=== PATIENT | male | born 1955 | race Caucasian/White ===

== ENCOUNTER 2017-07-31 08:35 | Outpatient (CLI) | payer OTHER ==
[~2017-07-31] VITALS: Ht 193 cm; Wt 97.7 kg
--- NOTE | ~2017-07-31 | HEMODYNAMI ---
PATIENT:MARK BACA MEDICAL RECORD: [id number] : 53 LOCATION:[facility] ADMISSION DATE: 07/31/17 Generatedon:07/31/201713:13 Patient name: MARK BACA Patient #: [id number] SSN: : Date of study: 07/31/2017 Page: Of Hemodynamic Procedure Report Patient Data Patient Demographics Procedure consent was obtained First Name: MARK Gender: Male Last Name: KEVEN : 1955 [facility] Initial: RY Age: 61 year(s) Patient #: [id number] Race: Unknown Additional ID: [id number] Contact details Address: [address] [place] [address] State: [place] City: [place] Zip code: [address] Past Medical History Allergies Allergen Reaction Date Comments Reported Penicillins 07/31/2017 Admission Admission Data Admission Date: 07/31/2017 Admission Time: 8:35 Height (in.): 6.4 BSA: 0.38 (m2) Height (cm.): 16.26 BMI: 3776.25 (kg/m2) Weight (lbs.): 220 Weight (kg.): 99.79 Lab Results Lab Result Date: 07/31/2017 Lab Result Time: 0:00 Biochemistry Name Units Result Min Max BUN mg/dl 18 --(---*)-- 7 18 Creatinine mg/dl 1 --(--*-)-- 0.6 1.3 CBC Name Units Result Min Max Hemoglobin g/dl 16.6 --(---*)-- 13.5 17.5 Procedure Procedure Types Cath Procedure Diagnostic Procedure [facility] w/Coronaries Sedation Charges Moderate Sedation up to 15 minutes PCI Procedure Coronary Stent Coronary Stent Initial Coronary Stent Additional Procedure Description Procedure Date Procedure Date: 07/31/2017 Procedure Start Time: 12:40 Procedure End Time: 13:08 Procedure Staff Name Function Eulogio Garduno MD Performing Physician Gaby Ariza RT Monitor Bryan Jensen RT Nish Day RN Nurse Procedure Data Cath Procedure Fluoroscopy Diagnostic fluoroscopy Total fluoroscopy Time: 8.1 time: 8.1 min min Diagnostic fluoroscopy Total fluoroscopy dose: dose: 1405 mGy 1405 mGy Contrast Material Contrast Material Type Amount (ml) Isovue 300 162 Entry Location Entry Primary Successful Side Size Upsize Upsize Entry Closure Succes sful Closure Location (Fr) 1 (Fr) 2 (Fr) Remarks Device Remarks Femoral Right 5 Fr 6 Fr Exoseal artery Short Estimated blood loss: 10 ml Diagnostic catheters Device Type Used For End Catheter Placement MULTIPACK Pigtail 5 Fr Procedure catheter MULTIPACK JL 4.0 5Fr Procedure catheter MULTIPACK 3DRC 5Fr Procedure catheter Procedure Complications No complications Procedure Medications Medication Administration Route Dosage Oxygen etCO2 Nasal cannula 2 l/min Heparin Flush Bag added to field 2 bags (1000units/500ml NS) 0.9% NaCl I.V. 100 ml/hr Versed I.V. 1 mg Fentanyl I.V. 50 mcg Heparin Bolus I.V. 4000 units Versed I.V. 1 mg Fentanyl I.V. 50 mcg Fentanyl I.V. 50 mcg Hemodynamics Rest BSA: 0.38 (m2) HGB: 16.6 (g/dl) O2 Consumption: Estimated: 42.39 (ml/min) O2 Con sumption indexed: Estimated:111.55 (ml/min/m) Heart Rate: 55 (bpm) Snapshots Pre Cath Intra NCS Post Cath Vital Signs Time Heart Resp SPO2 etCO2 NIBP (mmHg) Rhythm Pain Sedation Rate (ipm) (%) (mmHg) Status Level (bpm) 12:27:40 57 17 98 34.3 145/77(100) NSR 0 (11) 10(A) , No pain 12:32:22 60 16 99 35.1 139/81(101) NSR 0 (11) 10(A) , No pain 12:37:07 56 15 96 0.7 127/66(88) NSR 0 (11) 10(A) , No pain 12:42:18 56 13 96 38.8 131/68(100) NSR 0 (11) 9(A) , No pain 12:47:01 57 13 96 38.1 126/69(97) NSR 0 (11) 9(A) , No pain 12:51:41 63 15 96 38.1 128/71(95) NSR 0 (11) 9(A) , No pain 12:56:24 62 16 96 41.9 134/68(100) NSR 0 (11) 10(A) , No pain 13:01:07 60 14 94 36.6 125/59(85) NSR 0 (11) 9(A) , No pain 13:05:49 60 15 96 42.6 136/67(111) NSR 0 (11) 10(A) , No pain Medications Time Medication Route Dose Verified Delivered Reason Notes Effectiveness by by 12:26:16 Oxygen etCO2 2 Eulogio Buffie Per physician Nasal l/min Laureen Day RN cannula 12:26:25 Heparin Flush added 2 Eulogio Buffie used for Bag to bags Laureen Day RN procedure (1000units/500ml field NS) 12:26:35 0.9% NaCl I.V. 100 Eulogio Buffie Per physician ml/hr Laureen Day RN 12:37:17 Versed I.V. 1 mg Eulogio Buffie for sedation Laureen Day RN 12:37:24 Fentanyl I.V. 50 Eulogio Buffie for sedation mcg Laureen Day RN 12:48:23 Heparin Bolus I.V. 4000 Eulogio Buffie for verif ied units Laureen Day RN anticoagulation with dr garduno 12:49:18 Versed I.V. 1 mg Eulogio Buffie for sedation Laureen Day RN 12:49:22 Fentanyl I.V. 50 Eulogio Buffie for sedation mcg Laureen Day RN 12:56:58 Fentanyl I.V. 50 Eulogio Buffie for sedation maury Day RN Procedure Log Time Note 11:53:28 Signed procedure consent form obtained from patient. 11:53:30 Time tracking: Regular hours (M-F 7:00 - 5:00) 11:53:34 Plan of Care:Hemodynamics will remain stable., Cardiac rhythm will remain stable., Comfort level will be maintained., Respiratory function will remain adequate., Patient/ family verbilizes understanding of procedure., Procedure tolerated without complication., Recovers from procedure without complications.. 11:55:57 Patient allergic to Penicillins 12:03:12 Lab Result : BUN 18 mg/dl 12:03:12 Lab Result : Hemoglobin 16.6 g/dl 12:03:12 Lab Result : Creatinine 1 mg/dl 12:03:42 Patient Height : 6.4 inches 12:03:48 Patient Weight : 220 lbs 12:11:03 Gaby Ariza RT(R) sent for patient. Start room use. 12:16:04 Patient received from Pre/Post Procedure Room to CCL 1 Alert and oriented. Tansferred to table in Supine position. 12:16:05 Warm blankets applied, and jeana hugger turned on for patient comfort. 12:16:05 Correct patient and procedure confirmed by team. 12:16:06 ECG and BP/O2 sat monitors applied to patient. 12:16:21 H&P Date Dictated: 07/28/2017 Within 30 days and on chart., H&P Addendum completed by physician on day of procedure. (MUST COMPLETE FOR ALL OUTPATIENTS). 12:16:23 Pre-procedure instructions explained to patient. 12:16:23 Pre-op teaching completed and patient verbalized understanding. 12:16:25 Family in waiting room. 12:16:27 Patient NPO since Midnight. 12:25:57 Vital chart was started 12:26:16 Oxygen 2 l/min etCO2 Nasal cannula was administered by Iman Day RN; Per physician; 12:26:25 Heparin Flush Bag (1000units/500ml NS) 2 bags added to field was administered by Iman Day RN; used for procedure; 12:26:35 0.9% NaCl 100 ml/hr I.V. was administered by Iman Day RN; Per physician; 12:31:02 Baseline sample Acquired. 12:31:06 Rhythm: sinus bradycardia 12:31:07 Full Disclosure recording started 12:31:10 Is the patient allergic to Iodine/contrast media? No. 12:31:13 Is patient on blood thinner?Yes 12:31:22 PRELOADED PLAVIX 12:32:37 Patient diabetic? Yes. 12:32:39 If diabetic: On Metformin? Yes 12:32:40 If on Metformin: Last Dose? 07/30/2017 12:32:45 Previous problem with sedation/anesthesia? No ? 12:32:46 Snore? Yes 12:32:47 Sleep apnea? No 12:32:50 Deviated septum? No 12:32:50 Opens mouth fully? Yes 12:32:51 Sticks out tongue? Yes 12:32:53 Airway obstruction? No ? 12:32:54 Dentures? No ? 12:33:03 Pre procedure: right dorsailis pedis pulse 2+ Normal; easily identifiable; not easily obliterated 12:33:52 Patient pain scale 0/10 ?. 12:33:55 IV patent on arrival in left forearm with 0.9% NaCl at [facility]. 12:33:58 Lab results completed and on chart. 12:34:01 Right groin area was prepped with chlora-prep and draped in sterile fashion 12:34:02 Alarms reviewed by R. N. 12:34:03 Sharps counted by scrub and verified by R.N. 12:34:05 --------ALL STOP TIME OUT------ 12:34:06 Final Timeout: patient, procedure, and site verified with staff and physician. All members of the team are in agreement. 12:34:10 Right groin site verified by team. 12:34:13 Physical assessment completed. ASA score P 2 - A patient with mild systemic disease as per Eulogio Garduno MD. 12:34:15 Sedation plan: IV Moderate Sedation Medication:Versed, Fentanyl 12:35:58 Use device set Femoral Dx 12:35:59 ACIST Syringe (30354) opened to sterile field. 12:36:00 Bag Decanter () opened to sterile field. 12:36:01 ACIST Hand Control (89021) opened to sterile field. 12:36:02 ACIST Manifold (57895) opened to sterile field. 12:36:06 Tegaderm 4 x 4 (1626W) opened to sterile field. 12:36:10 Medline Cath Pack ([id number]) opened to sterile field. 12:36:10 DIAGNOSTIC WIRE .035 260cm J wire (339161) opened to sterile field. 12:36:12 DIAGNOSTIC Multipack 5Fr catheter set (IS0102) opened to sterile field. 12:36:14 SHEATH Prelude 5Fr 0.035 (CSV-5K-25-035) opened to sterile field. 12:37:13 Zero performed for pressure channel P1 12:37:17 Versed 1 mg I.V. was administered by Iman Day RN; for sedation; 12:37:24 Fentanyl 50 mcg I.V. was administered by Iman Day RN; for sedation; 12:40:30 Procedure started. 12:40:34 Local anesthetic to right femoral artery with Lidocaine 2% by Eulogio Garduno MD.INITIAL ACCESS ONLY 12:41:01 A 5 Fr sheath was inserted into the Right Femoral artery 12:42:11 A MULTIPACK Pigtail 5 Fr catheter was advanced over the wire and used for Procedure. 12:42:17 LV gram done using BARLOW 12:42:20 Injector settings: Ml/sec: 10, Volume: 20, 12:42:59 EF : 60 % 12:43:02 Catheter removed. 12:43:08 A MULTIPACK JL 4.0 5Fr catheter was advanced over the wire and used for Procedure. 12:44:15 LCA angiography performed. 12:44:43 Catheter removed. 12:44:51 A MULTIPACK 3DRC 5Fr catheter was advanced over the wire and used for Procedure. 12:45:54 RCA angiography performed. 12:46:07 Catheter removed. 12:46:17 SHEATH 6FR Thurmond (QJN209) opened to sterile field. 12:46:21 INFLATOR Merit BasixCompak (HL2933) opened to sterile field. 12:46:27 CHOICE PT Extra Support 182cm wire ([id number]) opened to sterile field. 12:47:22 Sheath upsized to a 6 Fr Short. 12:47:42 GUIDE 6FR XB 4.0 catheter ([id number]) opened to sterile field. 12:47:52 6 Fr XBLAD 4 guide catheter was inserted over the wire 12:48:23 Heparin Bolus 4000 units I.V. was administered by Iman Day RN; for anticoagulation; verified with dr garduno 12:48:45 CHOICE ES 182 wire advanced. 12:48:47 Wire advanced across lesion. 12:49:18 Versed 1 mg I.V. was administered by Iman Day RN; for sedation; 12:49:22 Fentanyl 50 mcg I.V. was administered by Iman Day RN; for sedation; 12:49:52 Inflate balloon Inflation number: 1 A NC EUPHORA 3.5 x 15 balloon ([id number]) was prepped and advanced across the Prox LAD, then inflated to 15 LIONEL for 0:10 (min:sec). 12:50:17 Inflation number: 2 The NC EUPHORA 3.5 x 15 balloon ([id number]) was reinflated across the Prox LAD, to 19 LIONEL for 0:00 (min:sec). 12:50:59 Inflation number: 3 The NC EUPHORA 3.5 x 15 balloon ([id number]) was reinflated across the Prox LAD, to 23 LIONEL for 0:10 (min:sec). 12:51:29 Balloon removed over the wire. 12:55:37 Place stent Inflation Number: 4 A EVETTE RX 4.0 x 12 stent ([id number]) was prepped and advanced across the Prox LAD. The stent was deployed at 24 LIONEL for 0:10 (min:sec). 12:56:14 Stent catheter was removed intact over wire. 12:56:21 Wire removed. 12:56:38 CHOICE PT Extra Support 182cm wire ([id number]) opened to sterile field. 12:56:50 CHOICE ES 182 wire advanced. 12:56:58 Fentanyl 50 mcg I.V. was administered by Iman Day RN; for sedation; 12:57:05 Wire advanced across lesion. 13:00:03 The EVETTE RX 2.75 x 22 stent ([id number]) was advanced then removed because it was opened but not used 13:01:11 Inflate balloon Inflation number: 1 A EUPHORA 2.5 x 20 Balloon ([id number]) was prepped and advanced across the Dist CX, then inflated to 13 LIONEL for 0:10 (min:sec). 13:01:29 Inflation number: 2 The EUPHORA 2.5 x 20 Balloon ([id number]) was reinflated across the Dist CX, to 15 LIONEL for 0:10 (min:sec). 13:01:38 Balloon removed over the wire. 13:03:10 Place stent Inflation Number: 3 A EVETTE RX 2.75 x 22 stent ([id number]) was prepped and advanced across the Dist CX. The stent was deployed at 13 LIONEL for 0:10 (min:sec). 13:03:40 Stent catheter was removed intact over wire. 13:03:55 EXOSEAL 6Fr (EX600) opened to sterile field. 13:04:57 Sheath removed intact; hemostasis achieved with Exoseal to the Right Femoral artery. 13:04:59 Procedure ended.(Physican Out) 13:05:51 Fluoroscopy time 08.10 minutes. 13:05:55 Flurop Dose total: 1405 13:05:55 Fluoroscopy dose: 1405 mGy 13:05:58 Contrast amount:Isovue 300 162ml. 13:06:00 Sharps counted by scrub and verified by R.N. 13:06:03 Post-op/insertion site Right Femoral artery dressed using a 4 x 4 and Tegaderm. 13:06:06 Post right femoral artery:stable, soft, clean and dry 13:06:10 Post procedure: right dorsailis pedis pulse 2+ Normal; easily identifiable; not easily obliterated. 13:06:13 Post-procedure physical assessment completed. ASA score P 2 - A patient with mild systemic disease as per Eulogio Garduno MD. 13:06:16 Post procedure rhythm: sinus rhythm 13:06:18 Estimated blood loss: 10 ml 13:06:45 Post procedure instruction explained to patient.Patient verbalizes understanding. 13:06:46 Patient needs reinforcement of post procedure teaching. 13:07:03 Procedure type changed to Cath procedure, Diagnostic procedure, LHC, LHC w/Coronaries, Sedation Charges, Moderate Sedation up to 15 minutes, PCI procedure, Coronary Stent, Coronary Stent Initial, Coronary Stent Additional 13:08:04 Procedure and supply charges have been captured, reviewed, submitted and are correct. 13:08:06 Procedure Complication : No complications 13:08:07 Vital chart was stopped 13:08:08 See physician's report for complete and final results. 13:08:09 Report given to Pre/Post Procedure Room. 13:08:12 Patient transfered to Pre/Post Procedure Room with Bed. 13:08:14 Procedure ended. 13:08:14 Full Disclosure recording stopped 13:08:20 End room use (Document Last) Intervention Summary Intervention Notes Time ActionType Lesion and Equipment Used Action# Pressure Duration Attributes 12:49:52 Inflate Prox LAD NC EUPHORA 3.5 1 15 00:10 balloon x 15 balloon ([id number]) 12:50:17 Reinflate Prox LAD NC EUPHORA 3.5 2 19 00:00 balloon x 15 balloon ([id number]) 12:50:59 Reinflate Prox LAD NC EUPHORA 3.5 3 23 00:10 balloon x 15 balloon ([id number]) 12:55:37 Place stent Prox LAD EVETTE RX 4.0 x 4 24 00:10 12 stent ([id number]) 13:00:03 Discard EVETTE RX 2.75 x Stent 22 stent ([id number]) 13:01:11 Inflate Dist CX EUPHORA 2.5 x 1 13 00:10 balloon 20 Balloon ([id number]) 13:01:29 Reinflate Dist CX EUPHORA 2.5 x 2 15 00:10 balloon 20 Balloon ([id number]) 13:03:10 Place stent Dist CX EVETTE RX 2.75 x 3 13 00:10 22 stent ([id number]) Device Usage Item Name Manufacture Quantity Catalog Number Hospital Part Current Minimal Lot# / Charge Number Stock Stock Serial# Code ACIST Syringe Acist 1 32905 806136 877498 290031 20 (97084) Medical Systems MobilePro Bag Decanter Microtek 1 2001S 018718 63918 030788 5 (2001S) Medical Inc. ACIST Hand Acist 1 21101 366865 860027 088427 5 Control (06914) Medical Systems Inc ACIST Manifold Acist 1 42095 208206 472491 470565 5 (80984) Medical Systems Inc Tegaderm 4 x 4 3M 1 1626W 002568 675112 371201 5 (1626W) Medline Cath Cardinal 1 [id number] 321547 85831 704354 5 [facility] EnSolve Biosystems ([id number]) DIAGNOSTIC WIRE St Jd 1 980583 940175 249279 601596 30 .035 260cm J wire (416818) DIAGNOSTIC Cardinal 1 RX6944 331782 49183 245824 30 Multipack 5Fr Health catheter set (SC9183) SHEATH Prelude Merit 1 BUQ-0V-25-035 066644 953908 612998 5 5Fr 0.035 Medical (UCM-2F-76-035) MULTIPACK Cardinal 1 938162 5 Pigtail 5 Fr Health catheter MULTIPACK JL Cardinal 1 957903 5 4.0 5Fr Health catheter MULTIPACK 3DRC Cardinal 1 780051 5 5Fr catheter Health SHEATH 6FR Terumo 1 GRF072 568518 743747 298037 40 Thurmond (PRV178) INFLATOR Merit Merit 1 KC6317 058261 234387 990470 15 Mino Wireless [facility] (EG4037) CHOICE PT Extra Wayne 2 [id number] 807779 346811 806912 5 Support 182cm Scientific wire ([id number]) GUIDE 6FR XB Cardinal 1 [id number] 909342 500189 354506 2 4.0 catheter EnSolve Biosystems ([id number]) NC EUPHORA 3.5 Medtronic 1 [id number] 735892 430266 554692 1 [id number] x 15 balloon ([id number]) EVETTE RX 4.0 x Medtronic 1 [id number] 477247 6882945 252290 5 [id number] 12 stent ([id number]) EVETTE RX 2.75 x Medtronic 1 [id number] 280088 5781536 587329 5 [id number] 22 stent ([id number]) EUPHORA 2.5 x Medtronic 1 [id number] 062978 672279 165233 5 [id number] 20 Balloon ([id number]) EXOSEAL 6Fr Cardinal 1 EX600 042282 278308 620582 10 (EX600) Health Signature Audit [place] Stage Time Signature Unsigned Intra-Procedure 07/31/2017 Gaby Ariza 1:13:51 PM RT(R) Signatures Monitor : Gaby Ariza Signature : RT Date : Time : [id number] [place] [address]
--- NOTE | ~2017-07-31 | OP ---
PATIENT NAME: MARK BACA MEDICAL RECORD: [id number] :53 LOCATION:D.CAT ADMISSION DATE: SURGEON: RAFAEL THAO MD DATE OF OPERATION: 07/31/2017 PROCEDURES: 1. PTCA stent LAD. 2. PTCA stent left circumflex. 3. Left heart catheterization. 4. Selective coronary angiography. 5. Left ventriculogram. INDICATION: Angina and coronary artery disease. PROCEDURE IN DETAIL: After informed consent was obtained and after a detailed description of risks, benefits as well as alternative therapies, the patient elected to proceed with angiogram and angioplasty. The right femoral area was prepped and draped in normal sterile fashion. Right femoral artery cannulated via modified Seldinger technique with placement of 6-Taiwanese sheath. All catheters exchanged through this sheath. FINDINGS: Left ventriculogram was performed in standard 30-degree BARLOW view, reveals good cardiac wall motion throughout all segments. Overall ejection fraction 50%. SELECTIVE CORONARY ANGIOGRAPHY: 1. Left main is with no significant angiographic disease. 2. Left anterior descending has previously placed stent proximally with 99% in-stent restenosis. 3. Left circumflex has 99% stenosis throughout the mid distal portion. 4. The right coronary artery has multiple areas of 80% stenosis, but at least 2 areas of 80% stenosis. The right PDA is totally occluded. The PDA fills via well-developed [id number] collaterals. PTCA STENT OF THE LAD AND CIRCUMFLEX: The LAD was addressed with a 4.0 x 12 mm Hunter stent. This was taken to 24 atmospheres and the high pressure balloon was as well taken to 24 atmospheres after this. The lesion did not totally release, but was much improved from what it was with hindu of EMILY-3 flow. PTCA STENT OF THE LEFT CIRCUMFLEX: The stent used was a 2.75 x 22 mm Hunter. Result was 0% residual stenosis. OVERALL IMPRESSION: Successful percutaneous transluminal coronary angioplasty stent of the left anterior descending and circumflex, both going from 99% initial stenosis to 0% residual stenosis. PLAN: For WEB PROJECT MANAGER stent of the RCA in the near future. TRANSINT:[id number] Voice Confirmation ID: [id number] DOCUMENT ID: [id number] OPERATIVE REPORT [id number] MARK BACA JEFFREY MD at 1403 CC: [id number] DICTATION DATE: 07/31/17 1332 CALL OUT CLERK: 07/31/17 1344 DEP CLI 07/31/17 [facility] [address] [place] [address]
[2017-07-31] MEDS ORDERED: EXFORGE HCT 101 EAC2 PO (09:18)
[2017-07-31] MEDS ORDERED: BYSTOLIC2.5 MG PO (09:18)
[2017-07-31] MEDS ORDERED: XIGDUO XR 5 MG1 EAC1 (09:19)
[2017-07-31] MEDS ORDERED: PLAVIX75 MG (09:20)
[2017-07-31 09:32] VITALS: BP 128/65; Ht 193 cm; Wt 97.7 kg
[2017-07-31 09:44] LABS: BASOPHILS 0.3 % (0-2); HEMATOCRIT 45.5 % (42.0-54.0); HEMOGLOBIN 16.6 g/dL (13.5-17.5); IMMATURE GRANULOCYTES 0.9 % (0-5); LYMPHOCYTES 41.1 % (15-50); MCH 34.2 pg (26.0-34.0); MCHC 36.5 g/dL (31.0-37.0); MCV 93.8 fL (80.0-100.0); MEAN PLATELET VOLUME 10.2 fL (7.4-10.4); MONOCYTES 5.3 % (2-11); NEUTROPHILS 47.4 % (40-80); PLATELET COUNT 119 10x3/uL (130-400); RBC 4.85 10x6/uL (4.20-6.10); RDW 12.5 % (11.5-14.5); WBC 6.4 10x3/uL (4.8-10.8)
[2017-07-31 10:01] LABS: CALC OSMOLALITY 283 mosm/kg (275-300); CALCIUM 9.1 mg/dL (8.5-10.1); CARBON DIOXIDE 24.2 mmol/L (21.0-32.0); CHLORIDE - SERUM 106 mmol/L (98-107); GLUCOSE 167 mg/dL (74-106); POTASSIUM - SERUM 4.2 mmol/L (3.5-5.1); SODIUM 139 mmol/L (136-145); UREA NITROGEN 18 mg/dL (7-18); eGFR NON AFRICAN AMERICAN 80 mL/min (90-120)
[2017-07-31] MEDS ORDERED: PRAVACHOL40 MG PO (13:32)
[2017-07-31] MEDS ORDERED: PLAVIX75 MG PO (13:39)
[2017-08-03] MEDS ORDERED: BAYER CHEWABLE81 MG PO (13:33)
== END 2017-07-31 17:34 | disposition home or self-care (01) ==
LOC: D.CATH 08:35
PROVIDERS: Internal Medicine Interventional Cardiology
DX: I25.110 Atherosclerotic heart disease of native coronary artery with unstable angina pectoris (principal); Z95.5 Presence of coronary angioplasty implant and graft; Z01.812 Encounter for preprocedural laboratory examination

== ENCOUNTER → 2017-08-03 07:56 | Outpatient (CLI) | payer OTHER ==
[~2017-08-03] VITALS: Ht 193 cm; Wt 97.7 kg
--- NOTE | ~2017-08-03 | OP ---
PATIENT NAME: MARK BACA MEDICAL RECORD: [id number] :53 LOCATION:D.CAT ADMISSION DATE: SURGEON: RAFAEL THAO MD DATE OF OPERATION: 08/03/2017 PROCEDURES: 1. PTCA and stent of RCA. 2. Selective coronary angiography. INDICATION: Angina and coronary artery disease. PROCEDURE PERFORMED: After informed consent was obtained and after detailed explanation of risks, benefits as well as alternative therapies, the patient elected to proceed with angiogram and angioplasty. The right femoral area was prepped and draped in normal sterile fashion. The right femoral artery was cannulated via modified Seldinger technique with placement of 7-Kyrgyz sheath. All catheters exchanged through this sheath. FINDINGS: The right coronary has 85% stenosis in the mid vessel. This was addressed with a 3.0 x 18 mm Sreedhar. The result was 0% residual stenosis. OVERALL IMPRESSION: Successful PTCA and stent of the right coronary going from 85% initial stenosis to 0% residual. TRANSINT:[id number] Voice Confirmation ID: [id number] DOCUMENT ID: [id number] RAFAEL THAO MD at 1403 CC: [id number] DICTATION DATE: 08/03/17 1311 HEATING AND REFRIGERATION INSPECTOR: 08/03/17 1331 DEP CLI 08/03/[address] [id number]
--- NOTE | ~2017-08-03 | HEMODYNAMI ---
PATIENT:MARK BACA MEDICAL RECORD: [id number] : 53 LOCATION:[facility] ADMISSION DATE: 08/03/17 Generatedon:08/03/201713:12 Patient name: MARK BACA Patient #: [id number] SSN: : Date of study: 08/03/2017 Page: Of Hemodynamic Procedure Report Patient Data Patient Demographics Procedure consent was obtained First Name: MARK Gender: Male Last Name: KEVEN : 1955 [facility] Initial: RY Age: 61 year(s) Patient #: [id number] Race: Unknown Additional ID: [id number] Contact details Address: [address] [place] [address] State: [place] City: [place] Zip code: [address] Past Medical History Allergies Allergen Reaction Date Comments Reported Penicillins 07/31/2017 Other allergy 08/03/2017 PCN Admission Admission Data Admission Date: 08/03/2017 Admission Time: 7:56 Lab Results Lab Result Date: 08/03/2017 Lab Result Time: 8:30 Biochemistry Name Units Result Min Max BUN mg/dl 20 --(----)*- 7 18 Creatinine mg/dl 1 --(--*-)-- 0.6 1.3 CBC Name Units Result Min Max Hematocrit % 45.5 --(-*--)-- 42 54 Hemoglobin g/dl 16.6 --(---*)-- 13.5 17.5 Procedure Procedure Types Cath Procedure PCI Procedure Coronary Stent Coronary Stent Initial Procedure Description Procedure Date Procedure Date: 08/03/2017 Procedure Start Time: 13:00 Procedure End Time: 13:11 Procedure Staff Name Function Eulogio Garduno MD Performing Physician Bryan Jensen RT Monitor Veronica Dale RT Scrub Ki Vuong RN Nurse Procedure Data Cath Procedure Fluoroscopy Diagnostic fluoroscopy Total fluoroscopy Time: 2.7 time: 2.7 min min Diagnostic fluoroscopy Total fluoroscopy dose: 215 dose: 215 mGy mGy Contrast Material Contrast Material Type Amount (ml) Isovue 300 42 Entry Location Entry Primary Successful Side Size Upsize Upsize Entry Closure Succes sful Closure Location (Fr) 1 (Fr) 2 (Fr) Remarks Device Remarks Femoral Right 7 Fr Exoseal artery Short Estimated blood loss: 10 ml Procedure Complications No complications Procedure Medications Medication Administration Route Dosage Oxygen etCO2 Nasal cannula 2 l/min Heparin Flush Bag added to field 2 bags (1000units/500ml NS) 0.9% NaCl I.V. 100 ml/hr Fentanyl I.V. 50 mcg Versed I.V. 1 mg Fentanyl I.V. 50 mcg Versed I.V. 1 mg Heparin Bolus I.V. 4000 units Fentanyl I.V. 50 mcg Versed I.V. 1 mg Fentanyl I.V. 50 mcg Versed I.V. 1 mg Hemodynamics Rest HGB: 16.6 (g/dl) Heart Rate: 58 (bpm) Snapshots Pre Cath Intra NCS Post Cath Vital Signs Time Heart Resp SPO2 etCO2 NIBP (mmHg) Rhythm Pain Sedation Rate (ipm) (%) (mmHg) Status Level (bpm) 12:36:01 54 16 97 0 147/79(100) NSR 0 (11) 10(A) , No pain 12:40:47 55 17 99 0 151/78(106) NSR 0 (11) 10(A) , No pain 12:45:32 53 16 95 38.3 143/79(115) NSR 0 (11) 10(A) , No pain 12:50:19 48 17 95 36 154/70(114) NSR 0 (11) 10(A) , No pain 12:55:05 54 17 94 28.5 149/79(99) NSR 0 (11) 10(A) , No pain 13:00:29 47 16 97 30.8 144/69(110) NSR 0 (11) 10(A) , No pain 13:05:10 57 16 80 0 127/70(97) NSR 0 (11) 9(A) , No pain 13:09:52 63 16 86 0 139/77(107) NSR 0 (11) 9(A) , No pain Medications Time Medication Route Dose Verified Delivered Reason Notes Effectiveness by by 12:35:36 Oxygen etCO2 2 Eulogio Emerson Per physician Nasal l/min Laureen Vuong RN cannula 12:35:44 Heparin Flush added 2 Eulogio Kany used for Bag to bags Laureen Vuong RN procedure (1000units/500ml field NS) 12:35:53 0.9% NaCl I.V. 100 Eulogio Ki Per physician ml/hr Laureen Vuong RN 12:58:36 Fentanyl I.V. 50 Eulogio Ki for sedation mcg Laureen Vuong RN 12:58:42 Versed I.V. 1 mg Eulogio Ki for sedation Laureen Vuong RN 12:59:34 Fentanyl I.V. 50 Eulogio Ki for sedation mcg Laureen Vuong RN 12:59:38 Versed I.V. 1 mg Eulogio Ki for sedation Laureen Vuong RN 13:01:05 Heparin Bolus I.V. 4000 Eulogio Ki for units Laureen Vuong RN anticoagulation 13:01:25 Fentanyl I.V. 50 Eulogio Ki for sedation mcg Laureen Vuong RN 13:01:27 Versed I.V. 1 mg Eulogio Ki for sedation Laureen Vuong RN 13:04:56 Fentanyl I.V. 50 Eulogio Ki for sedation mcg Laureen Vuong RN 13:04:59 Versed I.V. 1 mg Eulogio Ki for sedation Laureen Vuong RN Procedure Log Time Note 12:02:32 Time tracking: Regular hours (M-F 7:00 - 5:00) 12:02:36 Plan of Care:Hemodynamics will remain stable., Cardiac rhythm will remain stable., Comfort level will be maintained., Respiratory function will remain adequate., Patient/ family verbilizes understanding of procedure., Procedure tolerated without complication., Recovers from procedure without complications.. 12:15:39 Bryan Jensen RT(R) sent for patient. Start room use. 12:25:36 Diagnostic Cath status Elective 12:30:57 Patient received from Pre/Post Procedure Room to CCL 1 Alert and oriented. Tansferred to table in Supine position. 12:30:58 Warm blankets applied, and jeana hugger turned on for patient comfort. 12:30:58 Correct patient and procedure confirmed by team. 12:31:00 Signed procedure consent form obtained from patient. 12:31:01 ECG and BP/O2 sat monitors applied to patient. 12:31:02 Full Disclosure recording started 12:35:06 Vital chart was started 12:35:36 Oxygen 2 l/min etCO2 Nasal cannula was administered by Ki Vuong RN; Per physician; 12:35:44 Heparin Flush Bag (1000units/500ml NS) 2 bags added to field was administered by Ki Vuong RN; used for procedure; 12:35:53 0.9% NaCl 100 ml/hr I.V. was administered by Ki Vuong RN; Per physician; 12:41:51 Baseline sample Acquired. 12:41:55 Rhythm: sinus rhythm 12:43:35 H&P Date Dictated: 08/03/2017 Within 30 days and on chart., H&P Addendum completed by physician on day of procedure. (MUST COMPLETE FOR ALL OUTPATIENTS). 12:43:37 Pre-procedure instructions explained to patient. 12:43:37 Pre-op teaching completed and patient verbalized understanding. 12:43:39 Family in patients room. 12:43:40 Patient NPO since Midnight. 12:43:50 Patient allergic to Other allergyPCN 12:43:53 Is the patient allergic to Iodine/contrast media? No. 12:43:54 Is patient on blood thinner?Yes 12:43:55 Patient diabetic? Yes. 12:43:56 If diabetic: On Metformin? Yes 12:44:08 If on Metformin: Last Dose? 07/30/2017 12:44:12 Previous problem with sedation/anesthesia? No ? 12:44:13 Snore? No 12:44:14 Sleep apnea? No 12:44:15 Deviated septum? No 12:44:15 Opens mouth fully? Yes 12:44:16 Sticks out tongue? Yes 12:44:17 Airway obstruction? No ? 12:44:19 Dentures? No ? 12:44:22 Pre procedure: right dorsailis pedis pulse 2+ Normal; easily identifiable; not easily obliterated 12:44:23 Patient pain scale 0/10 ?. 12:44:29 IV patent on arrival in left forearm with 0.9% NaCl at [facility]. 12:45:19 Lab results completed and on chart. 12:45:50 Lab Result : BUN 20 mg/dl 12:45:50 Lab Result : Creatinine 1 mg/dl 12:45:50 Lab Result : Hemoglobin 16.6 g/dl 12:45:50 Lab Result : Hematocrit 45.5 % 12:45:54 Right groin area was prepped with chlora-prep and draped in sterile fashion 12:45:55 Alarms reviewed by Michi Jean 12:46:01 ACIST Syringe (16013) opened to sterile field. 12:46:02 Bag Decanter (2002S) opened to sterile field. 12:46:02 Medline Cath Pack ([id number]) opened to sterile field. 12:46:04 ACIST Hand Control (07327) opened to sterile field. 12:46:04 ACIST Manifold (29647) opened to sterile field. 12:46:05 Tegaderm 4 x 4 (1626W) opened to sterile field. 12:46:10 DIAGNOSTIC WIRE .035 260cm J wire (433497) opened to sterile field. 12:46:20 SHEATH 7FR [place] (PBZ518) opened to sterile field. 12:46:28 INFLATOR Merit BasixCompak (FR6288) opened to sterile field. 12:51:12 GUIDE 7FR AR 2.0 SH catheter ([id number]) opened to sterile field. 12:51:18 Zero performed for pressure channel P1 12:51:29 Physician arrived 12:51:30 --------ALL STOP TIME OUT------ 12:51:31 Final Timeout: patient, procedure, and site verified with staff and physician. All members of the team are in agreement. 12:51:32 Right groin site verified by team. 12:51:35 Physical assessment completed. ASA score P 2 - A patient with mild systemic disease as per Eulogio Garduno MD. 12:51:38 Sedation plan: IV Moderate Sedation Medication:Versed, Fentanyl 12:58:36 Fentanyl 50 mcg I.V. was administered by Ki Vuong RN; for sedation; 12:58:42 Versed 1 mg I.V. was administered by Ki Vuong RN; for sedation; 12:59:34 Fentanyl 50 mcg I.V. was administered by Ki Vuong RN; for sedation; 12:59:38 Versed 1 mg I.V. was administered by Ki Vuong RN; for sedation; 13:00:00 Procedure started. 13:00:03 Local anesthetic to right femoral artery with Lidocaine 2% by Eulogio Garduno MD.INITIAL ACCESS ONLY 13:00:13 A 7 Fr Short sheath was inserted into the Right Femoral artery 13:00:42 7 Fr AR 2 SH guide catheter was inserted over the wire 13:01:05 Heparin Bolus 4000 units I.V. was administered by Ki Vuong RN; for anticoagulation; 13:01:25 Fentanyl 50 mcg I.V. was administered by Ki Vuong RN; for sedation; 13::27 Versed 1 mg I.V. was administered by Ki Vuong RN; for sedation; 13:04:56 Fentanyl 50 mcg I.V. was administered by Ki Vuong RN; for sedation; 13:04:59 Versed 1 mg I.V. was administered by Ki Vuong RN; for sedation; 13:05:06 CHOICE PT Extra Support J 300cm guide wire ([id number]) opened to sterile field. 13:06:00 CHOICE PT wire advanced. 13:06:20 Wire advanced across lesion. 13:06:55 Place stent Inflation Number: 1 A EVETTE OTW 3.0 x 18 stent ([id number]) was prepped and advanced across the Mid RCA. The stent was deployed at 17 LIONEL for 0:10 (min:sec). 13:07:18 Stent catheter was removed intact over wire. 13:07:19 Wire removed. 13:07:20 Guide catheter removed. 13:07:57 EXOSEAL 7Fr (EX700) opened to sterile field. 13:08:05 Sheath removed intact; hemostasis achieved with Exoseal to the Right Femoral artery. 13:08:07 Procedure ended.(Physican Out) 13:10:13 Fluoroscopy time 02.70 minutes. 13:10:17 Flurop Dose total: 215 13:10:17 Fluoroscopy dose: 215 mGy 13:10:21 Contrast amount:Isovue 300 42ml. 13:10:22 Sharps counted by scrub and verified by R.N. 13:10:24 Insertion/operative site no bleeding no hematoma. 13:10:27 Post-op/insertion site Right Femoral artery dressed using a 4 x 4 and Tegaderm. 13:10:32 Post right femoral artery:stable, soft, clean and dry 13:10:33 Post Procedure Pulses reassessed and unchanged 13:10:36 Post-procedure physical assessment completed. ASA score P 2 - A patient with mild systemic disease as per Eulogio Garduno MD. 13:10:38 Post procedure rhythm: unchanged. 13:10:40 Estimated blood loss: 10 ml 13:10:42 Post procedure instruction explained to patient.Patient verbalizes understanding. 13:10:42 Patient needs reinforcement of post procedure teaching. 13:11:09 Procedure and supply charges have been captured, reviewed, submitted and are correct. 13:11:11 Procedure Complication : No complications 13:11:13 Vital chart was stopped 13:11:14 See physician's report for complete and final results. 13:11:16 Report given to Pre/Post Procedure Room. 13:11:18 Patient transfered to Pre/Post Procedure Room with Stretcher. 13:11:20 Procedure ended. 13:11:20 Full Disclosure recording stopped 13:11:24 End room use (Document Last) Intervention Summary Intervention Notes Time ActionType Lesion and Equipment Action# Pressure Duration Attributes Used 13:06:55 Place stent Mid RCA EVETTE OTW 3.0 1 17 00:10 x 18 stent ([id number]) Device Usage Item Name Manufacture Quantity Catalog Number Hospital Part [facility] Lot# / Charge Number Stock Stock Serial# Code ACIST Syringe Acist 1 [id number] 139131 279273 [id number] 20 (77188) Medical Systems Inc Bag Decanter Microtek 1 2001S 087001 66855 082271 5 (2001S) Medical Inc. Medline Cath Cardinal 1 [id number] 968589 52544 209606 5 Pack Health ([id number]) ACIST Hand Acist 1 78153 447852 022420 586904 5 Control Medical (02321) Systems Inc ACIST Acist 1 15160 365740 715773 429646 5 Manifold Medical (07192) Systems Inc Tegaderm 4 x 3M 1 1626W 282166 275482 755385 5 4 (1626W) DIAGNOSTIC St Jd 1 354567 800449 716853 635847 30 WIRE .035 260cm J wire (587272) SHEATH 7FR Terumo 1 MMR056 045667 495335 005218 5 [place] (QWO768) INFLATOR Merit 1 PP6778 145594 792718 633119 15 [facility] Medical BasixCompak (YY3830) GUIDE 7FR AR Medtronic 1 [id number] 294332 150516 641802 0 2.0 SH catheter ([id number]) CHOICE PT Glenn 1 [id number] 305801 822474 533285 5 Extra Support Scientific J 300cm guide wire ([id number]) EVETTE OTW 3.0 Medtronic 1 [id number] 366245 4634949 113533 5 [id number] x 18 stent ([id number]) EXOSEAL 7Fr Cardinal 1 EX700 179123 058739 910375 5 (EX700) Health Signature Audit [place] Stage Time Signature Unsigned Intra-Procedure 08/03/2017 Bryan Jensen 1:12:28 PM RT(R) Signatures Monitor : Bryan Jensen RT Signature : Date : Time : [place] [id number] [place] [address]
--- NOTE | ~2017-08-03 | HP ---
PATIENT: MARK GUTIERREZ MEDICAL RECORD: [id number] ACCOUNT: [id number] LOCATION:CHEL : 53 ADMISSION DATE: 08/03/17 HISTORY AND PHYSICAL EXAMINATION ADMITTING DIAGNOSES: 1. Angina. 2. Coronary artery disease. 3. Recent PTCA and stent of LAD and left circumflex, concomitant disease of RCA. HISTORY OF PRESENT ILLNESS: Mr. Gutierrez presents with unstable anginal symptomatology, found to have 3-vessel coronary artery disease. Underwent successful PTCA and stent of the LAD and left circumflex, now brought back for PTCA and stent of the RCA. PHYSICAL EXAMINATION: GENERAL APPEARANCE: Well-nourished, well-developed, appears stated age. Level of distress, comfortable. PSYCHIATRIC: Mental status, alert, normal affect. Orientation, oriented to time, place and person. EYES: Lids and conjunctiva, noninjected. No discharge, no pallor. ENT: Lips, teeth, gums, normal dentition. Oropharynx, no cyanosis, no pallor. NECK: Carotid arteries, bilateral normal upstroke, no bruits, no thrills. JUGULAR VEINS: No jugular venous pressure or distention. CERVICAL LYMPH NODES: Nontender, nonenlarged. THYROID: Not enlarged. Nontender. No nodules. LUNGS: Respiratory effort, unlabored. CHEST: Normal curvature. No thoracic deformity. No chest wall tenderness. Percussion, resonant. Auscultation, clear. No wheezes, no rales, no rhonchi. CARDIOVASCULAR: Precordial exam, nondisplaced. No heaves or pericardial thrills. Rate and rhythm, regular. Heart sounds, normal S1, normal S2. No S3, no gallop, no rub. Systolic murmur, not heard. Diastolic murmur, not heard. EXTREMITIES: No cyanosis, no edema. Peripheral pulses, full and equal in all extremities, except as noted. No bruits appreciated. ABDOMEN: Soft, nondistended. Normal aorta. No bruit. Nontender. No masses. Liver, nontender, no hepatomegaly. Spleen, nontender, no splenomegaly. MUSCULOSKELETAL: No joint tenderness. No joint swelling. No erythema. NEUROLOGICAL: Normal gait, normal strength, normal tone. SKIN: Warm and dry. OVERALL IMPRESSION: Anginal symptomatology with significant disease of the RCA. We will proceed with transcatheter revascularization of the RCA. TRANSINT:[id number] Voice Confirmation ID: [id number] DOCUMENT ID: [id number] HISTORY AND PHYSICAL [id number] MARK GUTIERREZ, RAFAEL MANCILLA at 1403 CC: [id number] DICTATION DATE: 08/03/17 1034 TOLL TICKET CLERK: 08/03/17 1149 DEP CLI 08/03/[address] [address]
[~2017-08-03 07:56] MED LIST: BAYER CHEWABLE81 MG PO; BYSTOLIC2.5 MG PO; EXFORGE HCT 101 EAC2 PO; PLAVIX75 MG; PLAVIX75 MG PO; PRAVACHOL40 MG PO; XIGDUO XR 5 MG1 EAC1
[2017-08-03 08:39] LABS: BASOPHILS 0.3 % (0-2); EOSINOPHILS 4.8 % (0-7); HEMATOCRIT 45.5 % (42.0-54.0); HEMOGLOBIN 16.6 g/dL (13.5-17.5); IMMATURE GRANULOCYTES 1.3 % (0-5); LYMPHOCYTES 35.3 % (15-50); MCH 34.3 pg (26.0-34.0); MCHC 36.5 g/dL (31.0-37.0); MEAN PLATELET VOLUME 10.5 fL (7.4-10.4); MONOCYTES 6.9 % (2-11); NEUTROPHILS 51.4 % (40-80); PLATELET COUNT 115 10x3/uL (130-400); RBC 4.84 10x6/uL (4.20-6.10); RDW 12.6 % (11.5-14.5); WBC 6.2 10x3/uL (4.8-10.8)
[2017-08-03 08:43] VITALS: BP 135/69; Ht 193 cm; Wt 97.7 kg
[2017-08-03 08:53] LABS: CALC OSMOLALITY 286 mosm/kg (275-300); CARBON DIOXIDE 27.5 mmol/L (21.0-32.0); CHLORIDE - SERUM 104 mmol/L (98-107); GLUCOSE 203 mg/dL (74-106); POTASSIUM - SERUM 4.2 mmol/L (3.5-5.1); SODIUM 139 mmol/L (136-145); UREA NITROGEN 20 mg/dL (7-18); eGFR NON AFRICAN AMERICAN 80 mL/min (90-120)
== END | disposition home or self-care (01) ==
LOC: D.CATH 07:56
PROVIDERS: Internal Medicine Interventional Cardiology
DX: I25.119 Atherosclerotic heart disease of native coronary artery with unspecified angina pectoris (principal); Z95.5 Presence of coronary angioplasty implant and graft; Z01.812 Encounter for preprocedural laboratory examination

== ENCOUNTER 2017-11-19 07:07 | Outpatient (CLI) | payer OTHER ==
[~2017-11-19] VITALS: Ht 193 cm; Wt 88.6 kg
[2017-11-19 07:22] LABS: BASOPHILS 0.4 % (0-2); EOSINOPHILS 3.4 % (0-7); HEMATOCRIT 44.7 % (42.0-54.0); IMMATURE GRANULOCYTES 0.8 % (0-5); LYMPHOCYTES 22.4 % (15-50); MCH 30.4 pg (26.0-34.0); MCHC 33.6 g/dL (31.0-37.0); MCV 90.5 fL (80.0-100.0); MEAN PLATELET VOLUME 9.8 fL (7.4-10.4); RBC 4.94 10x6/uL (4.20-6.10); RDW 13.1 % (11.5-14.5); WBC 9.6 10x3/uL (4.8-10.8)
[2017-11-19 07:25] LABS: PLATELET COUNT 200 10x3/uL (130-400)
[2017-11-19 07:32] LABS: ANION GAP 9.7 mmol/L (8-16); CALCIUM 9.1 mg/dL (8.5-10.1); CARBON DIOXIDE 30.2 mmol/L (21.0-32.0); CREATININE - SERUM 1.2 mg/dL (0.6-1.3); POTASSIUM - SERUM 3.9 mmol/L (3.5-5.1)
[2017-11-19 07:34] LABS: APTT 26.8 SECONDS (22.8-39.4); INR 1.1 (0.85-1.17); PROTIME 13.8 SECONDS (11.6-15.0)
[2017-11-19] MEDS ORDERED: PACERONE200 MG PO (08:22)
[2017-11-19] MEDS ORDERED: TOPROL XL50 MG PO (08:24)
[2017-11-19 08:32] VITALS: BP 145/84; Ht 193 cm; Wt 88.6 kg
[2017-11-19 14:16] LABS: EOS BF 1 %; MACROPHAGES BF 11 %; MESOTHELIALS BF 2 %; NEUT - BF 8 %
== END 2017-11-19 12:55 | disposition home or self-care (01) ==
LOC: D.SP 07:07 → D.CT 09:00 → D.SP 09:00
PROVIDERS: Specialist
DX: J90 Pleural effusion, not elsewhere classified (principal); Z01.812 Encounter for preprocedural laboratory examination

== ENCOUNTER 2017-11-26 10:48 | Outpatient (CLI) | payer OTHER ==
[~2017-11-26] VITALS: Ht 193 cm; Wt 90.9 kg
[~2017-11-26 10:48] MED LIST changes: +PACERONE200 MG PO; +TOPROL XL50 MG PO
[2017-11-26 11:15] LABS: BASOPHILS 0.4 % (0-2); EOSINOPHILS 3.8 % (0-7); HEMATOCRIT 49.5 % (42.0-54.0); IMMATURE GRANULOCYTES 1.5 % (0-5); LYMPHOCYTES 26.5 % (15-50); MCH 30.7 pg (26.0-34.0); MCHC 34.3 g/dL (31.0-37.0); MCV 89.4 fL (80.0-100.0); MEAN PLATELET VOLUME 10.5 fL (7.4-10.4); MONOCYTES 7.5 % (2-11); NEUTROPHILS 60.3 % (40-80); PLATELET COUNT 163 10x3/uL (130-400); RBC 5.54 10x6/uL (4.20-6.10); RDW 13.2 % (11.5-14.5); WBC 7.6 10x3/uL (4.8-10.8)
[2017-11-26 11:32] LABS: APTT 32.6 SECONDS (22.8-39.4); INR 1.26 (0.85-1.17); PROTIME 15.4 SECONDS (11.6-15.0)
[2017-11-26 11:39] LABS: CALC OSMOLALITY 287 mosm/kg (275-300); CALCIUM 9.2 mg/dL (8.5-10.1); CARBON DIOXIDE 28.8 mmol/L (21.0-32.0); CHLORIDE - SERUM 105 mmol/L (98-107); GLUCOSE 167 mg/dL (74-106); POTASSIUM - SERUM 4.3 mmol/L (3.5-5.1); SODIUM 141 mmol/L (136-145); UREA NITROGEN 20 mg/dL (7-18); eGFR NON AFRICAN AMERICAN 80 mL/min (90-120)
[2017-11-26 12:52] VITALS: BP 163/101; Ht 193 cm; Wt 90.9 kg
== END 2017-11-26 16:40 | disposition home or self-care (01) ==
LOC: D.SP 10:48 → D.CT 13:00 → D.SP 13:00 → D.CT 12-01 08:00
PROVIDERS: General Practice
DX: J90 Pleural effusion, not elsewhere classified (principal); Z01.812 Encounter for preprocedural laboratory examination

== ENCOUNTER 2017-12-07 11:58 | Outpatient (CLI) | payer OTHER ==
[~2017-12-07] VITALS: Ht 193 cm; Wt 88.6 kg
--- NOTE | ~2017-12-07 | HEMODYNAMI ---
PATIENT:MARK BACA MEDICAL RECORD: [id number] : 53 LOCATION:[facility] ADMISSION DATE: 12/07/17 Generatedon:12/07/201714:40 Patient name: MARK BACA Patient #: [id number] SSN: : 1955 Date of study: 12/07/2017 Page: Of Hemodynamic Procedure Report Patient Data Patient Demographics Procedure consent was obtained First Name: MARK Gender: Male Last Name: KEVEN : 1955 [facility] Initial: RY Age: 62 year(s) Patient #: [id number] Race: Unknown Additional ID: [id number] Contact details Address: [address] [place] [address] State: [place] City: [place] Zip code: [address] Past Medical History Allergies Allergen Reaction Date Comments Reported Penicillins 07/31/2017 Other allergy 08/03/2017 PCN Penicillins 12/07/2017 Admission Admission Data Admission Date: 12/07/2017 Admission Time: 11:58 Procedure Procedure Types Cath Procedure Peripheral Cath Diagnostic Procedure Miscellaneous Thoracentesis Procedure Description Procedure Date Procedure Date: 12/07/2017 Procedure Start Time: 14:26 Procedure Staff Name Function Mark Reed MD Performing Physician Imtiaz cMkee RT Monitor Claire Pena Scrub Abby Nunes RN Nurse Procedure Medications Medication Administration Route Dosage Versed I.V. 0.5 mg Fentanyl I.V. 25 mcg Oxygen etCO2 Nasal cannula 4 l/min Lidocaine 1% added to field 20 Fentanyl I.V. 25 mcg Hemodynamics Rest Snapshots Pre Cath Intra NCS Post Cath Vital Signs Time Heart Resp SPO2 etCO2 NIBP (mmHg) Rhythm Pain Sedation Rate (ipm) (%) (mmHg) Status Level (bpm) 14:16:10 62 4 99 23.9 163/97(132) 1 0 (11) 10(A) degree , No AV pain Block 14:20:34 65 22 99 23.2 152/95(134) 1 0 (11) 9(A) degree , No AV pain Block 14:25:08 66 17 99 29.2 151/61(76) 1 0 (11) 9(A) degree , No AV pain Block 14:30:07 64 18 99 24.7 Measuring 1 0 (11) 9(A) degree , No AV pain Block 14:30:40 66 15 99 22.4 173/109(122) 1 0 (11) 9(A) degree , No AV pain Block 14:35:13 63 24 100 32.9 170/105(121) 1 0 (11) 9(A) degree , No AV pain Block 14:38:52 59 15 99 32.2 165/90(143) 1 0 (11) 9(A) degree , No AV pain Block Medications Time Medication Route Dose Verified Delivered Reason Notes Effective ness by by 14:28:32 Versed I.V. 0.5 Mark Mora for Fully padilla ke @ mg Brianna Nunes RN sedation 14:31:19 14:28:45 Fentanyl I.V. 25 Mark Mora for Fully padilla ke @ mcg Brianna Nunes RN sedation 14:31:17 14:29:01 Oxygen etCO2 4 Mark Mora used for Nasal l/min Brianna Nunes RN procedure cannula 14:29:14 Lidocaine added 20ml Mark Flores used for 1% to vial Reed Reed procedure field MD MANCILLA 14:31:02 Fentanyl I.V. 25 Mark Flores for mcg Reed Reed sedation MD MANCILLA Procedure Log Time Note 14:04:08 Imtiaz Mckee RT (R) (CV) sent for patient. Start room use. 14:04:22 Time tracking: Regular hours (M-F 7:00 - 5:00) 14:04:30 Plan of Care:Hemodynamics will remain stable., Cardiac rhythm will remain stable., Comfort level will be maintained., Respiratory function will remain adequate., Patient/ family verbilizes understanding of procedure., Procedure tolerated without complication., Recovers from procedure without complications.. 14:04:41 Patient received from Outpatients to IR Alert and oriented. Tansferred to table and set up on the side of table 14:05:04 Correct patient and procedure confirmed by team. 14:05:06 Signed procedure consent form obtained from patient. 14:05:08 ECG and BP/O2 sat monitors applied to patient. 14:05:10 Full Disclosure recording started 14:05:11 - 14:05:12 - 14:05:15 H&P Date Dictated: 12/07/2017 Within 30 days and on chart.. 14:05:16 Pre-procedure instructions explained to patient. 14:05:17 Pre-op teaching completed and patient verbalized understanding. 14:05:21 Family unavailable. 14:05:25 Patient NPO since Midnight. 14:05:39 Is the patient allergic to Iodine/contrast media? No. 14:05:52 Patient allergic to Penicillins 14:05:56 Is patient on blood thinner?No 14:06:00 - 14:06:00 ----Pre-sedation anethsthesia assessment.---- 14:06:06 Patient diabetic? Yes. 14:06:08 If diabetic: On Metformin? Yes 14:06:10 If on Metformin: Last Dose? 12/07/2017 14:06:16 - 14:06:16 ----Pre-sedation anethsthesia assessment.---- 14:06:19 Previous problem with sedation/anesthesia? No ? 14:06:21 Snore? No 14:06:23 Sleep apnea? No 14:06:25 Deviated septum? No 14:06:26 Opens mouth fully? Yes 14:06:27 Sticks out tongue? Yes 14:06:29 Airway obstruction? No ? 14:06:33 Dentures? No ? 14:06:39 Sharps counted by scrub and verified by R.N. 14:06:40 Alarms reviewed by R. N. 14:06:49 Left chest area was prepped with chlora-prep and draped in sterile fashion 14:07:02 IV patent on arrival in right hand with 0.9% NaCl at [facility]. 14:14:44 Vital chart was started 14:14:45 Baseline sample Acquired. 14:25:03 Physician arrived 14:25:04 --------ALL STOP TIME OUT------ 14:25:11 Final Timeout: patient, procedure, and site verified with staff and physician. All members of the team are in agreement. 14:25:17 Left chest site verified by team. 14:25:22 Sedation plan: IV Moderate Sedation Medication:Versed, Fentanyl 14:25:58 Procedure started. 14:26:03 Local anesthetic to Chest area with Lidocaine 1% by Mark Reed MD.INITIAL ACCESS ONLY 14:26:12 SAFE-T PLUS MYELOGRAM TRAY opened to sterile field. 14:27:47 YUCH needle opened to sterile field. 14::32 Versed 0.5 mg I.V. was administered by Abby Nunes RN; for sedation; 14::45 Fentanyl 25 mcg I.V. was administered by Abby Nunes RN; for sedation; 14:29:01 Oxygen 4 l/min etCO2 Nasal cannula was administered by Abby Nunes RN; used for procedure; 14:29:14 Lidocaine 1% 20ml vial added to field was administered by Mark Reed MD; used for procedure; 14:31:02 Fentanyl 25 mcg I.V. was administered by Mark Reed MD; for sedation; 14:31:[address]OP[address]OCK 1-Way Male Rotating ([id number]) opened to sterile field. 14:31:17 Effectiveness of Fentanyl delivered @ 14:28:45 is: Fully awake 14:31:19 Effectiveness of Versed delivered @ 14:28:32 is: Fully awake 14:36:00 Procedure ended.(Physican Out) 14:36:31 Sharps counted by scrub and verified by R.N. 14:36:32 Insertion/operative site no bleeding no hematoma. 14:36:39 Post-op/insertion site Left Thoracic area dressed using a 4 x 4 and Tegaderm. 14:36:45 Post procedure instruction explained to patient.Patient verbalizes understanding. 14:36:47 Procedure and supply charges have been captured, reviewed, submitted an d are correct. 14:39:39 Report given to Outpatients. 14:39:42 Patient transfered to Outpatients with Stretcher. 14:40:06 Vital chart was stopped Device Usage Item Name Manufacture Quantity Catalog Hospital Part Current Minimal Lot# / Number Charge Number Stock Stock Serial# Code SAFE-T CareFusion 1 [id number] 5 PLUS [facility]ELOGRAM TRAY [facility] [id number] [id number] 5 98263 00 [facility] 1 [id number] [id number] 86888 [id number] 5 32194 21 1-Way Male Rotating ([id number]) Signature Audit [place] Stage Time Signature Unsigned Intra-Procedure 12/07/2017 Imtiaz 2:40:04 PM Rafi RT (R) (CV) Signatures Monitor : Imtiaz Signature : Rafi RT Date : Time : [facility] [address] [place] [address]
[2017-12-07 13:01] LABS: INR 1.08 (0.85-1.17); PROTIME 13.6 SECONDS (11.6-15.0)
[2017-12-07 13:02] LABS: BASOPHILS 0.3 % (0-2); CALC OSMOLALITY 285 mosm/kg (275-300); CALCIUM 9.1 mg/dL (8.5-10.1); CARBON DIOXIDE 30.8 mmol/L (21.0-32.0); CHLORIDE - SERUM 106 mmol/L (98-107); EOSINOPHILS 4.6 % (0-7); GLUCOSE 126 mg/dL (74-106); HEMATOCRIT 45.4 % (42.0-54.0); HEMOGLOBIN 15.7 g/dL (13.5-17.5); IMMATURE GRANULOCYTES 1.4 % (0-5); LYMPHOCYTES 28.7 % (15-50); MCH 30.5 pg (26.0-34.0); MCHC 34.6 g/dL (31.0-37.0); MCV 88.3 fL (80.0-100.0); MEAN PLATELET VOLUME 9.8 fL (7.4-10.4); MONOCYTES 6.6 % (2-11); NEUTROPHILS 58.4 % (40-80); POTASSIUM - SERUM 4.3 mmol/L (3.5-5.1); RBC 5.14 10x6/uL (4.20-6.10); RDW 13.6 % (11.5-14.5); SODIUM 142 mmol/L (136-145); UREA NITROGEN 16 mg/dL (7-18); WBC 6.5 10x3/uL (4.8-10.8); eGFR NON AFRICAN AMERICAN 80 mL/min (90-120)
[2017-12-07 13:13] VITALS: BP 146/85; Ht 193 cm; Wt 88.6 kg
[2017-12-07 13:14] LABS: PLATELET COUNT 110 10x3/uL (130-400)
== END 2017-12-07 16:55 | disposition home or self-care (01) ==
LOC: D.SP 11:58 → D.CT 14:00 → D.SP 16:55
PROVIDERS: Specialist
DX: J90 Pleural effusion, not elsewhere classified (principal); Z01.812 Encounter for preprocedural laboratory examination

== ENCOUNTER → 2017-12-16 08:48 | Outpatient (CLI) | payer OTHER ==
[2017-12-07 13:13] VITALS: BMI 23.7
== END | disposition home or self-care (01) ==
LOC: D.RAD 08:00
DX: R05 Cough (principal)

== ENCOUNTER 2017-12-21 07:22 | Outpatient (CLI) | payer OTHER ==
[2017-12-07 13:13] VITALS: BMI 23.7
[2017-12-21 07:39] LABS: BASOPHILS 0.3 % (0-2); EOSINOPHILS 5.1 % (0-7); HEMATOCRIT 46.3 % (42.0-54.0); HEMOGLOBIN 15.9 g/dL (13.5-17.5); IMMATURE GRANULOCYTES 1.1 % (0-5); LYMPHOCYTES 30.5 % (15-50); MCH 30.6 pg (26.0-34.0); MCHC 34.3 g/dL (31.0-37.0); MCV 89.2 fL (80.0-100.0); MEAN PLATELET VOLUME 9.4 fL (7.4-10.4); PLATELET COUNT 111 10x3/uL (130-400); RBC 5.19 10x6/uL (4.20-6.10); RDW 14.3 % (11.5-14.5); WBC 6.2 10x3/uL (4.8-10.8)
[2017-12-21 07:50] LABS: ANION GAP 12.4 mmol/L (8-16); CALCIUM 9.2 mg/dL (8.5-10.1); CARBON DIOXIDE 29.9 mmol/L (21.0-32.0); CREATININE - SERUM 1.1 mg/dL (0.6-1.3); POTASSIUM - SERUM 4.3 mmol/L (3.5-5.1)
[2017-12-21 07:58] LABS: APTT 26.6 SECONDS (22.8-39.4); INR 1.13 (0.85-1.17); PROTIME 14.1 SECONDS (11.6-15.0)
== END 2017-12-21 13:55 | disposition home or self-care (01) ==
LOC: D.SP 07:22 → D.CT 10:00 → D.SP 10:00
PROVIDERS: General Practice
DX: J90 Pleural effusion, not elsewhere classified (principal); Z01.812 Encounter for preprocedural laboratory examination

== ENCOUNTER 2018-02-12 12:15 | Emergency (ER) | payer OTHER ==
[~2018-02-12] VITALS: Ht 193 cm; Wt 90.7 kg
[2018-02-12 12:51] VITALS: Ht 193 cm; Wt 90.7 kg
[2018-02-12] MEDS ORDERED: XIGDUO XR 10 M1 EAC1 PO (12:55)
[2018-02-12 13:43] VITALS: BP 152/88
== END 2018-02-12 13:44 | disposition home or self-care (01) ==
LOC: D.ER 12:15
DX: R04.0 Epistaxis (principal)